=== PATIENT | male | born 1990 | race Hispanic/Latino ===

== ENCOUNTER 2019-08-22 17:00 | Emergency (ER) | payer SELFPAY ==
--- NOTE | 2019-08-22 17:32 | Emergency Department Report ---
ED General Adult HPI - General Chief complaint: Dental/Oral Stated complaint: RT SIDE TOOTHACHE/ABCESS/PAIN Time Seen by Provider: 08/22/19 17:25 Source: patient Mode of arrival: Ambulatory Limitations: No Limitations - History of Present Illness Initial comments: 28 yo AA M pt complains of right lower dental pain and gum swelling x 1 week. States hx of recurrent dental infections in the area. He denies any fever, body aches, facial swelling, or difficulty with swallowing. He states he is not currently following with a dental specialist. -: Sudden Severity scale (0 -10): 6 Consistency: constant Improves with: none Associated Symptoms: denies other symptoms Treatments Prior to Arrival: none - Related Data Previous Rx's Medication Instructions Recorded Last Taken Type Penicillin V Potassium 500 mg PO Q6H 7 Days #28 tablet 08/22/19 Unknown Rx Allergies Allergy/AdvReac Type Severity Reaction Status Date / Time No Known Allergies Allergy Unverified 08/22/19 17:20 ED Review of Systems ROS: Stated complaint: RT SIDE TOOTHACHE/ABCESS/PAIN Other details as noted in HPI Comment: All other systems reviewed and negative ENT: as per HPI ED Past Medical Hx - Past Medical History Previous Medical History?: No - Surgical History Past Surgical History?: No - Social History Smoking Status: Current Every Day Smoker Substance Use Type: None - Medications Home Medications: Home Medications Medication Instructions Recorded Confirmed Last Taken Type Penicillin V Potassium 500 mg PO Q6H 7 Days #28 tablet 08/22/19 Unknown Rx ED Physical Exam - General Limitations: No Limitations General appearance: alert, in no apparent distress - Head Head exam: Present: atraumatic, normocephalic - Eye Eye exam: Present: normal appearance - ENT ENT exam: Present: mucous membranes moist - Expanded ENT Exam Expanded Mouth exam: Absent: drooling, trismus, muffled voice Teeth exam: Present: dental caries, dental tenderness #, gingival enlargement (right lower with mild erythema ) Throat exam: Positive: normal inspection - Neck Neck exam: Present: normal inspection, full ROM. Absent: lymphadenopathy - Respiratory Respiratory exam: Absent: respiratory distress - Cardiovascular Cardiovascular Exam: Present: regular rate - Neurological Exam Neurological exam: Present: alert, oriented X3 - Psychiatric Psychiatric exam: Present: normal affect, normal mood - Skin Skin exam: Present: warm, dry, intact, normal color. Absent: rash ED Course Vital Signs 08/22/19 17:17 Temperature 98.5 F Pulse Rate 85 Respiratory 18 Rate Blood Pressure 127/81 O2 Sat by Pulse 98 Oximetry ED Medical Decision Making - Medical Decision Making Pt here for dental pain and gingival swelling x 1 week. No facial swelling/erythema or dental abscess noted on exam. No trismus. Vitals are normal. Pt is stable for d/c home with penicillin. Pt given dental specialist list to follow up with. Strict return precautions were discussed in detail with pt who verbalizes understanding. Critical care attestation.: If time is entered above; I have spent that time in minutes in the direct care of this critically ill patient, excluding procedure time. ED Disposition Clinical Impression: Dental infection Disposition: [id number] TO HOME OR SELFCARE Is pt being admited?: No Condition: Stable Instructions: Dental Abscess (ED) Additional Instructions: Please follow up with a dental specialist from the list provided within 2-3 days. Prescriptions: Penicillin V Potassium 500 mg PO Q6H 7 Days #28 tablet
[2019-08-22 17:38] VITALS: BP 127/81
== END 2019-08-22 17:56 | disposition home or self-care (01) ==
LOC: EDBD → ED 17:00
DX: K04.7 Periapical abscess without sinus (principal); F17.200 Nicotine dependence, unspecified, uncomplicated; Z79.899 Other long term (current) drug therapy